=== PATIENT | male | born 1970 | race Caucasian/White ===

== ENCOUNTER → 2017-11-14 08:33 | Outpatient (CLI) | payer OTHER, BC, SELFPAY ==
[2017-11-14 09:03] LABS: Bacteria 0 SEEN /hpf (None Seen); Red Blood Cells-Urine 0 SEEN /hpf (0-5); Squamous Epithelial Cells - UA 0 SEEN /hpf (0-5)
[2017-11-14 09:55] LABS: Absolute Neutrophil Count 3.5 X10^3/uL (2.0-7.7); Basophil# 0.03 X10^3/uL; Basophil% 0.4 % (0-1); Eosinophil# 0.39 X10^3/uL; Eosinophils% 5.7 % (0-5); Hemoglobin 16.8 g/dl (13.0-16.5); Lymphocyte % 29.5 % (19-41); Mean Corpuscular Hgb 31.4 pg (27.0-32.0); Mean Corpuscular Volume 89.7 fL (80-94); Mean Platelet Vol. 10.4 fl (6.2-12.0); Monocyte# 0.86 X10^3/uL; Monocyte% 12.7 % (0-10); Neutrophil # 3.47 X10^3/uL (2.7-7.7); Neutrophil % 51.1 % (47-70); Platelet Count 193 K/mm3 (150-450); RBC Distribution Width CV 12.7 % (11.6-14.6); RBC Distribution Width SD 41.7 fl (35.1-43.9); Red Blood Count 5.35 M/mm3 (4.6-6.2); White Blood Count 6.8 K/mm3 (4.4-11.0)
[2017-11-14 09:57] LABS: POSITIVE COUNT NO; POSITIVE DIFFERENTIAL NO; POSITIVE MORPHOLOGY NO
[2017-11-14 10:01] LABS: Color, Urine Yellow (Yellow); Glucose, Dipstick Normal (Normal); Ketone-Dipstick Negative (Negative); Leukocyte Esterase-Dipstick Negative /ul (Negative); Nitrite-Dipstick Negative (Negative); Occult Blood-Urine Negative /ul (Negative); Protein-Dipstick Negative (Negative); Specific Gravity, Urine 1.015 (1.002-1.030); Urine Bilirubin Dipstick Negative (Negative); Urine Clarity Clear (Clear); Urine Urobilinogen Normal (Normal)
[2017-11-14 10:08] LABS: Mucous, Urine 1+ /hpf (<or=2+); White Blood Cells 0-5 SEEN /hpf (0-5)
[2017-11-14 10:21] LABS: AST(SGOT) 27 U/L (15-37); Alanine Aminotransfer ALT/SGPT 34 U/L (16-61); Albumin, Serum 3.7 g/dL (3.2-5.0); Alkaline Phosphatase 85 U/L (45-117); Anion Gap 7 (5-15); BUN 19 mg/dL (7-18); BUN/Creat Ratio 21.8 RATIO (10-20); Calcium,Total 8.1 mg/dL (8.5-10.1); Chloride 103 mmol/L (98-107); Cholesterol 161 mg/dL (200); Creatinine, Serum 0.87 mg/dL (0.70-1.30); EST Glomerular Filtration Rate 99 mL/min (>60); Est Glom Filt Rate - Afr Amer 120 mL/min (>60); Globulin 3.8 g/dL (2.2-4.2); Glucose 83 mg/dL (74-106); High Density Lipoprotein 37 mg/dL; Potassium 4.2 mmol/L (3.5-5.1); Protein, Total 7.5 g/dL (6.4-8.2); Sodium Level 138 mmol/L (136-145); Triglycerides 127 mg/dL; Very Low Density Lipoprotein 25 mg/dL (5-40)
[2017-11-14 10:33] LABS: Microalbumin,Random Urine 19.3 mg/L (NO RANGE EST.); Microalbumin:Creatinine Ratio 7.8 mg/g CRE (<30 mg/g CRE)
== END ==
PROVIDERS: Family Provider Internal Medicine; PCP Internal Medicine; Visit Provider Internal Medicine
DX: I10 Essential (primary) hypertension (principal)
CPT/HCPCS: 36415; 80053; 80061; 81001; 82043; 82570; 85025

== ENCOUNTER → 2018-10-16 07:35 | Outpatient (CLI) | payer OTHER, BC, SELFPAY ==
[2018-10-16 08:26] LABS: Absolute Lymphocyte Count 2.23 X10^3/ul (0.83-4.51); Absolute Neutrophil Count 4.2 X10^3/uL (2.0-7.7); Basophil# 0.05 X10^3/uL; Basophil% 0.7 % (0-1); Eosinophil# 0.33 X10^3/uL; Eosinophils% 4.3 % (0-5); Hematocrit 49.1 % (40-54); Hemoglobin 16.9 g/dl (13.0-16.5); Lymphocyte # 2.23 X10^3/ul (4.0); Mean Corp Hgb Conc 34.4 g/gl (32-36); Mean Corpuscular Hgb 31.1 pg (27.0-32.0); Mean Corpuscular Volume 90.3 fL (80-94); Mean Platelet Vol. 9.6 fl (6.2-12.0); Monocyte# 0.81 X10^3/uL; Monocyte% 10.5 % (0-10); Neutrophil # 4.19 X10^3/uL (2.7-7.7); Neutrophil % 54.6 % (47-70); Platelet Count 233 K/mm3 (150-450); RBC Distribution Width CV 12.7 % (11.6-14.6); RBC Distribution Width SD 41.9 fl (35.1-43.9); Red Blood Count 5.44 M/mm3 (4.6-6.2); White Blood Count 7.7 K/mm3 (4.4-11.0)
[2018-10-16 08:32] LABS: POSITIVE COUNT NO; POSITIVE DIFFERENTIAL NO; POSITIVE MORPHOLOGY NO
[2018-10-16 08:51] LABS: Microalbumin,Random Urine 18.8 mg/L (NO RANGE EST.); Microalbumin:Creatinine Ratio 12.5 mg/g CRE (<30 mg/g CRE)
[2018-10-16 09:01] LABS: Color, Urine Yellow (Yellow); Glucose, Dipstick Normal (Normal); Ketone-Dipstick Negative (Negative); Leukocyte Esterase-Dipstick 25 /ul (Negative); Nitrite-Dipstick Negative (Negative); Occult Blood-Urine 10 /ul (Negative); Protein-Dipstick Negative (Negative); Urine Bilirubin Dipstick Negative (Negative); Urine Clarity Clear (Clear); Urine Urobilinogen Normal (Normal)
[2018-10-16 09:27] LABS: ALB/GLOB Ratio 0.8 RATIO (0.9-2.4); AST(SGOT) 22 U/L (15-37); Alanine Aminotransfer ALT/SGPT 32 U/L (16-61); Albumin, Serum 3.3 g/dL (3.2-5.0); Alkaline Phosphatase 103 U/L (45-117); Anion Gap 6 (5-15); BUN 15 mg/dL (7-18); BUN/Creat Ratio 15.4 RATIO (10-20); Calcium,Total 8.2 mg/dL (8.5-10.1); Chloride 105 mmol/L (98-107); Cholesterol 162 mg/dL (200); Creatinine, Serum 0.98 mg/dL (0.70-1.30); EST Glomerular Filtration Rate 87 mL/min (>60); Est Glom Filt Rate - Afr Amer 105 mL/min (>60); Globulin 4.3 g/dL (2.2-4.2); Glucose 96 mg/dL (74-106); High Density Lipoprotein 35 mg/dL; Potassium 3.8 mmol/L (3.5-5.1); Protein, Total 7.6 g/dL (6.4-8.2); Sodium Level 140 mmol/L (136-145); Triglycerides 122 mg/dL; Very Low Density Lipoprotein 24 mg/dL (5-40)
== END ==
PROVIDERS: Family Provider Internal Medicine; PCP Internal Medicine; Referring Provider Internal Medicine; Visit Provider Internal Medicine
DX: I10 Essential (primary) hypertension (principal)
CPT/HCPCS: 36415; 80053; 80061; 81002; 82043; 82570; 85025

== ENCOUNTER 2020-10-03 08:36 | Day surgery (SDC) | payer OTHER, SELFPAY ==
--- NOTE | 2020-10-03 08:56 | H&P.OPEN ---
History of Present Illness Date of Admission: 10/03/20 The patient is a 49 year old M presents for screening for colon cancer due to family history of colon cancer. Patient's brother did have colon cancer diagnosed at 62 along with kidney cancer. Colon cancer was able to be resected, and the kidney cancer did spread. Patient denies any chronic abdominal pain nausea vomiting or reflux. Patient has never had a previous colonoscopy. Patient has bowel movements daily denies any blood. Past Medical/Surgical History - Planned Operation Planned Operative Procedure/s: cscope open access Date of Operative Procedure: 10/03/20 Permit Signed: No S.O.S: No Is This Patient Having a Total Joint: No - Previous Hospitalizations/Surgeries HX Hospitalizations: No HX of Surgeries: n/a Any Problems With Anesthesia: No You/Your Family Experience Fever (Hyperthermia) With Anes: No Cholinesterase deficiency: No - Cardiovascular Hx Chest Pain within Last 2 months: No Hx of Irregular Heartbeat and/or Afib: No Hx Heart Attack: No Hx Congestive Heart Failure: No Hx Rheumatic Fever: No Hx Hypertension: Yes - controlled with meds Hx Internal Defibrillator: No Hx Pacemaker: No Hx Cardiac Catheterization: No Hx Cardiac Surgery/Stents/Etc.: No Hx Stress Test: No HX Edema: No Hx Pain in Legs when Walking/Leg Cramps: No - Respiratory Chronic Cough: No HX of Shortness of Breath: Yes - slightly sob with 2 flights of stairs Hoarseness: No Hx Chronic Obstructive Pulmonary Disease (COPD): No Hx Asthma: No Hx Emphysema: No Hx Sleep Apnea: Yes CPAP: Yes BIPAP: No Hx Oxygen Use at Home: No Hx Respiratory Tract Infection/Cold (presently): No Result (for STOP score): Positive Hx Smoking: No Smoking Status: Never smoker - Gastrointestinal Hx Gastroesophageal Reflux: No Hx Gastrointestinal Disorders: No Hx Gastrointestinal Bleed: No Hx Ulcer: No Hx Hiatal Hernia: No Difficulty Chewing/Swallowing: No Recent Onset of Swallowing Problems: No Special diet followed at home: No Hx Unplanned Weight Loss of 20#: No HX Unplanned Weight Gain of 20#: No - Neurological Hx Seizures: No HX Syncope/Blackout Spells/Unconsciousness: No Hx CVA/Stroke: No Hx Transient Ischemic Attacks (TIA): No Hx Multiple Sclerosis: No Hx Parkinson's Disease: No Hx Head/Neck Injury: Yes - concussion as teenager Hx Headaches: Yes - migraines Hx Back Injury/Pain: No Recent Onset of Speech Difficulty: No Restless Legs: Yes Does patient have nerve stimulator: No Patient instructed to have device shut off: No Rep notified?: No - Blood Disorder Hx Leukemia: No Bleeding Tendencies: No Hx Deep Vein Thrombosis: No Hx High Cholesterol: No Blood Transmitted Disease: No Hx Hepatitis: No Hx Cirrhosis: No Hx Anemia: No Hx Blood Disorders: No - Genitourinary Hx Renal Disease: No - Musculoskeletal Hx Arthritis: No Hx Rheumatoid Arthritis: No Hx Gout: No Recent Onset of an Orthopedic Problem: No - Endocrine Hx Diabetes: No Thyroid Disease: No Hx Steroid Therapy: No - Psycho/Social Hx Substance Use: No Hx Alcohol Use: No Hx Anxiety: No Hx Depression: No Mental Illness: No Hx Dementia: No - Miscellaneous Hx Cancer: No Recent Exposure to Contagious Disease: No Active MRSA: No Hx of C-Diff: No Any Loose Teeth: No Allergies No Known Allergies Allergy (Verified 10/03/20 08:56) - Discharge Is Pt Admitted From a Snf, or a [facility]: No After D/C, Where Do you Plan to Go: Return Home - Physical Exam General: Alert, Oriented x3, Cooperative, No apparent distress HEENT: Atraumatic Lungs: Normal air movement Cardiovascular: Regular rate Abdomen: Soft, Non Tender, Non-Distended Extremities: No clubbing, No cyanosis, No edema Neurological: Cranial nerves II-XII grossly intact Psych/Mental Status: Normal Affect Microbiology Past 72 Hours 10/02/20 08:45 Interface Orders SARS-CoV-2 Antigen (Rapid) - Final Assessment/Plan 49-year-old male with family history of colon cancer Procedure Criteria Procedure Type: Elective COVID Risk Discussion: The surgeon/proceduralist and patient have discussed in detail the risk of exposure to and/or potential harm posed by the COVID-19 virus with having a surgery/procedure at this time versus the risk of delaying the surgery/procedure. It is not possible to know either the risk of delaying the surgery or procedure or chance of getting an infection with perfect accuracy, but a joint decision was made between the patient and the surgeon/proceduralist to proceed at this time with the scheduled surgery/procedure as indicated on the consent form. Surgery Risks - Colonoscopy I discussed with the patient the risks of the procedure: Yes Risks Include but are not Limited To: Risks include but are not limited to: Bleeding, perforation requiring further surgery, inability to complete colonoscopy requiring barium enema.
[2020-10-03 08:59] VITALS: BP 154/103; PULSE 96; RESP 20; TEMP 36.6; O2SAT 98; BMI 46.4
[2020-10-03] MEDS: Lactated Ringers 1,000 ML 100 ML IV (09:08)
--- NOTE | 2020-10-03 09:45 | COLBX_PTH ---
PATIENT: JEFFERY KEN LOC: EN U#:[id number] AGE/SX: 49/M ROOM: RE10/03/[address]: Dr. Lelia Arguello MD : 1970 BED: DIS: 10/03/2020 SPEC #: [id number] RECD: 10/03/20 11:19 STATUS: SONYA FILI #: [id number] MAGALY: 10/03/20 09:[address]: Lelia Arguello DEPT: SURGICAL PATHOLOGY RECD BY: Elly Fritz ENTERED: 10/03/20 12:01 SP TYPE: COLON BX OTHR DR: Dr. Mely Flanagan DO Tissues: Transverse colon Procedures: Surgery Specimen Level IV HEADER OPERATION: Colonoscopy - open access (MAC) PRE-OP DIAGNOSIS: Screening TISSUE SUBMITTED: Biopsy of transverse colon polyp MICROSCOPIC DIAGNOSIS Transverse colon polyp, biopsy: Tubular adenoma. AM:milan 10/04/2020 MICROSCOPIC DESCRIPTION Slides are reviewed. GROSS DESCRIPTION Received in fixative is one container labeled with the patient's name and designated biopsy of transverse polyp. The specimen consists of two irregular fragments of light recinos soft tissue that in aggregate measure 0.5 x 0.5 x 0.1 cm. The specimen is totally submitted in one cassette. / AM:milan 10/03/20 TC:5 CPT: 76647
[2020-10-03 10:16] VITALS: BP 132/98; BP 154/103; PULSE 103; RESP 18; TEMP 36.3; O2SAT 96
--- NOTE | 2020-10-03 10:19 | OP.COLON_ITS ---
Patient Name: Yash Diallo Procedure Date: 10/03/2020 9:34 AM Date of : 1970 Age: 49 Procedure: Colonoscopy Indications: Screening in patient at increased risk: Family history of 1st-degree relative with colorectal cancer Providers: Lelia Arguello MD Medicines: Monitored Anesthesia Care Patient Profile: This is a 49 year old male. Last Colonoscopy: none. The patient's first colonoscopy is today. Complications: No immediate complications. Procedure: Pre-Anesthesia Assessment: - Prior to the procedure, a History and Physical was performed, and patient medications and allergies were reviewed. The patient's tolerance of previous anesthesia was also reviewed. The risks and benefits of the procedure and the sedation options and risks were discussed with the patient. All questions were answered, and informed consent was obtained. Prior Anticoagulants: The patient has taken no previous anticoagulant or antiplatelet agents. ASA Grade Assessment: Per anesthesia. After reviewing the risks and benefits, the patient was deemed in satisfactory condition to undergo the procedure. After I obtained informed consent, the scope was passed under direct vision. Throughout the procedure, the patient's blood pressure, pulse, and oxygen saturations were monitored continuously. The Colonoscope was introduced through the anus and advanced to the cecum, identified by the appendiceal orifice, ileocecal valve and palpation. The colonoscopy was performed without difficulty. The patient tolerated the procedure well. The quality of the bowel preparation was good. Scope In: 9:46:26 AM Scope Withdrawal Time 0 hours 19 minutes 30 seconds Scope Out: 10:11:07 AM Total Procedure Duration Time 0 hours 24 minutes 41 seconds Findings: The perianal and digital rectal examinations were normal. A less than 5 mm polyp was found in the transverse colon. The polyp was sessile. The polyp was removed with a cold biopsy forceps. Resection and retrieval were complete. A few small and large-mouthed diverticula were found in the sigmoid colon and descending colon. The exam was otherwise without abnormality on direct and retroflexion views. Impression: - One less than 5 mm polyp in the transverse colon, removed with a cold biopsy forceps. Resected and retrieved. - Diverticulosis in the sigmoid colon and in the descending colon. - The examination was otherwise normal on direct and retroflexion views. Recommendation: - Discharge patient to home. - High fiber diet. - Continue present medications. - Await pathology results. - Repeat colonoscopy in 3 years for surveillance based on pathology results. Procedure Code(s): --- Professional --- 28224, Colonoscopy, flexible; with biopsy, single or multiple Diagnosis Code(s): --- Professional --- Z80.0, Family history of malignant neoplasm of digestive organs D12.3, Benign neoplasm of transverse colon (hepatic flexure or splenic flexure) K57.30, Diverticulosis of large intestine without perforation or abscess without bleeding CPT copyright 2017 [employer]. All rights reserved. 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 MD Lelia De La Fuente MD 10/03/2020 10:19:12 AM This report has been signed electronically. Number of Addenda: 0 Note Initiated On: 10/03/2020 9:34 AM
[2020-10-03 10:20] VITALS: BP 131/92; BP 154/103; PULSE 102; RESP 18; O2SAT 96
--- NOTE | 2020-10-03 10:20 | OP.CCLET_ITS ---
10/03/2020 Mely Flanagan [address] [place] [address] Re : Colonoscopy procedure for [facility] Dear Dr. Flanagan This procedure was performed on Saturday, October 03, 2020. My impressions and recommendations are as follows: Impressions : - One less than 5 mm polyp in the transverse colon, removed with a cold biopsy forceps. Resected and retrieved. - Diverticulosis in the sigmoid colon and in the descending colon. - The examination was otherwise normal on direct and retroflexion views. Recommendations : - Discharge patient to home. - High fiber diet. - Continue present medications. - Await pathology results. - Repeat colonoscopy in 3 years for surveillance based on pathology results. My findings are described in the full procedure note, which is enclosed. If I can be of further assistance, please feel free to contact me at Doctor phone number(s): , Work: . Sincerely, MD Lelia De La Fuente MD 10/03/2020 10:19:12 AM This report has been signed electronically.
[2020-10-03 10:25] VITALS: BP 131/105; BP 154/103; PULSE 96; RESP 18; O2SAT 95
[2020-10-03 10:30] VITALS: BP 143/101; BP 154/103; PULSE 94; RESP 18; TEMP 36.2; O2SAT 94
[2020-10-03 11:12] VITALS: BP 154/103
== END 2020-10-03 11:43 | disposition home or self-care (01) ==
LOC: EN 08:36 → AC 08:37
PROVIDERS: PCP Internal Medicine; Referring Provider Internal Medicine; Visit Provider Surgery
PROC: 0DJD8ZZ Inspection of Lower Intestinal Tract, Via Natural or Artificial Opening Endoscopic (ICD-10-PCS; CPT 45378; principal; 2020-10-03 09:40)
DX: Z12.11 Encounter for screening for malignant neoplasm of colon (principal); D12.3 Benign neoplasm of transverse colon; K57.30 Diverticulosis of large intestine without perforation or abscess without bleeding; Z80.0 Family history of malignant neoplasm of digestive organs; Z20.828 Contact with and (suspected) exposure to other viral communicable diseases; I10 Essential (primary) hypertension; G47.30 Sleep apnea, unspecified; G25.81 Restless legs syndrome; G43.909 Migraine, unspecified, not intractable, without status migrainosus; Z79.899 Other long term (current) drug therapy
CPT/HCPCS: 45380; 87426; 88305; C9803; J7120; J2405

== ENCOUNTER 2020-11-22 09:30 | Outpatient (RCR) | payer OTHER, SELFPAY ==
[2020-11-22] MEDS: COVID-19 VACC, MRNA(PFIZER)/PF 30 MCG/0.3 ML SYRINGE IM (07:14)
[2020-12-13] MEDS: COVID-19 VACC, MRNA(PFIZER)/PF 30 MCG/0.3 ML SYRINGE IM (07:01)
== END 2020-11-22 23:59 ==
LOC: IMMUN 09:30
PROVIDERS: PCP Internal Medicine; Visit Provider Family Medicine
DX: Z23 Encounter for immunization (principal)
CPT/HCPCS: 0001A; 0002A; 91300

== ENCOUNTER 2022-10-10 06:56 | Emergency (ER) | payer OTHER, SELFPAY ==
[2022-10-10 06:56] VITALS: PULSE 83; RESP 18; TEMP 36.8; O2SAT 97; BMI 50.6
--- NOTE | 2022-10-10 07:07 | CT_ITS ---
STUDY: CT ABDOMEN AND PELVIS WITHOUT CONTRAST REASON FOR EXAM: Male, 51 years old. Left flank pain. TECHNIQUE: Transaxial images were obtained from the dome of the diaphragm to the symphysis pubis without oral contrast, and without intravenous contrast. Sagittal and coronal images were reconstructed. Individualized dose optimization techniques were used for this CT. COMPARISON: None. FINDINGS: Partially visualized lower chest: Lung bases unremarkable. Liver: No concerning lesions. Scattered benign-appearing cystic lesions. Gallbladder and biliary tree: No visible gallstones. No pericholecystic inflammation. No biliary ductal dilation. Pancreas: No pancreatic lesions or inflammation. Spleen: Normal size, no splenic lesions. Adrenal glands: No concerning masses. Kidneys and ureters: 3 mm proximal left ureteral stone with mild more proximal hydronephrosis and hydroureter. More distal left ureter unremarkable. No residual left-sided stones. Right kidney and right ureter unremarkable. Bowel: Normal appendix. No obstruction or inflammation of the bowel. Scattered left colonic diverticula, no diverticulitis. Urinary bladder: No stones or wall thickening. Reproductive:Normal size prostate. Vascular: No abdominal aortic aneurysm. Retroperitoneal and peritoneal spaces: No ascites or free air. No retroperitoneal lesions. Osseous: No acute osseous abnormality. Prominent facet degeneration lower lumbar spine. Abdominal and pelvic wall: No concerning findings. Any findings described in the findings sections and not included in the impression are incidental and do not require imaging follow-up. CT/Abdomen/Pelvis without Cont IMPRESSION: 3 mm proximal left ureteral stone with mild more proximal hydronephrosis and hydroureter. Electronically Signed: Jg Long MD at 7:41 EST Reading Location ID and State: [facility] [place] Tel , Service support ,
[2022-10-10 07:12] VITALS: BP 119/68
[2022-10-10] MEDS: 0.9% Normal Saline 1,000 ML 250 ML IV (07:15)
[2022-10-10] MEDS: Morphine 4 MG/ML Syringe IV ×2 (07:16→09:22)
[2022-10-10] MEDS: Ondansetron 4 MG/2 ML Vial IV (07:16)
--- NOTE | 2022-10-10 07:18 | EX.ED.DYSGE1 ---
HPI History of Present Illness Chief Complaint: Flank Pain Informant: patient Narrative Narrative: Sudden left leg pain starting at 4 AM. He is already awake. Unable to get comfortable. No nausea or vomiting. Urinating without any difficulties. No fevers. No history of kidney stones. History of hypertension took his morning medications. Took an Aleve prior to arrival. Denies any allergies. Denies history of stomach ulcers or kidney injury. Prior similar symptoms: No [facility] Medical History (Updated 10/10/22 @ 09:[address] Jorge Sanchez DO) Hypertension Home Medications amitriptyline 50 mg tablet 50 mg PO QHS 09/26/20 [History Last Taken Unknown] metoprolol tartrate 25 mg tablet 25 mg PO DAILY 09/26/20 [History Last Taken 10/03/20] rizatriptan 10 mg tablet 10 mg PO PRN PRN migraines 09/26/20 [History Last Taken Unknown] cefuroxime axetil 500 mg tablet 500 mg PO BID #14 tabs 10/10/22 [Rx Last Taken Unknown] ibuprofen 600 mg tablet 600 mg PO Q6H PRN PRN pain #20 TABLETS 10/10/22 [Rx Last Taken Unknown] ondansetron 4 mg disintegrating tablet 4 mg PO Q8H PRN PRN Nausea #10 tabs 10/10/22 [Rx Last Taken Unknown] oxycodone-acetaminophen 5 mg-325 mg tablet 1 tab PO Q6H PRN PRN Pain 3 days #12 TABLETS 10/10/22 [Rx Last Taken Unknown] tamsulosin 0.4 mg capsule 0.4 mg PO DAILY #7 CAPSULES 10/10/22 [Rx Last Taken Unknown] Allergy/AdvReac Type Severity Reaction Status Date / Time No Known Allergies Allergy Verified 10/10/22 06:58 Social History Smoking Status: Never smoker ROS ROS ED Constitutional Constitutional ED: Denies chills, fever(s) or sweats Eyes Eyes: Denies change in vision ENT ENT ED: Denies dysphagia or sore throat Cardiovascular Cardiovascular: Denies chest pain, leg edema, palpitations or racing heartbeat Respiratory/Chest Respiratory/Chest: Denies cough, dyspnea or dyspnea on exertion Gastrointestinal Gastrointestinal: Denies abdominal pain, diarrhea, nausea or vomiting Genitourinary Genitourinary ED: Denies dysuria, hematuria or urinary frequency Musculoskeletal Musculoskeletal: Reports back pain; Denies extremity pain or neck pain Integumentary Denies rash or wounds Neurologic Neurologic: Denies headache(s), paresthesias or weakness EXAM Physical Exam Const Vital Signs: 10/10/22 06:56 10/10/22 07:12 10/10/22 09:22 Temperature 98.2 F Temperature Source Temporal Pulse Rate 83 72 Respiratory Rate 18 16 Blood Pressure 119/68 119/59 L Blood Pressure Mean 85 79 Pulse Ox 97 98 Oxygen Delivery Method Room Air Room Air 10/10/22 10:16 Temperature Temperature Source Pulse Rate 71 Respiratory Rate 16 Blood Pressure 105/61 Blood Pressure Mean Pulse Ox 95 Oxygen Delivery Method Positive well nourished and well developed Constitutional Narrative: Uncomfortable walk around the room unable to stand still, Nontoxic General Appearance ED: well developed HEENT Reports moist mucous membranes normocephalic and atraumatic Eyes PERRL, EOMs intact bilaterally and conjunctivae normal General Eye ED: Yes normal appearance of both eyes Neck no lymphadenopathy and supple General: Negative for tenderness Chest Wall Chest: Negative for tenderness Resp normal respiratory effort and normal air movement Effort and Inspection: symmetric chest movement; Negative for respiratory distress Cardio regular rate, regular rhythm and no murmurs Peripheral Pulses: pulses 2+ throughout GI normal to inspection, nondistended, normoactive bowel sounds and non-tender Palpation: Negative for guarding or rebound tenderness present Back/Spine no CVA tenderness and no thoracic nor lumbar tenderness Back/Spine Narrative: No rash. Extremity normal to inspection General Extremety ED: Negative for edema or tenderness General Extremity: Negative for edema Neuro oriented x3 and no sensory deficits noted Sensorium / Orientation: awake and alert Skin no rashes or lesions noted and no wounds MDM MDM MDM Narrative Medical decision making narrative: Patient vital stable nontoxic uncomfortable. Differential kidney stone, no rash for concerns of shingles, musculoskeletal, pyelonephritis however no urine symptoms. Renal stone protocol initiated treated morphine Zofran fluids. Labs and CT scan ordered. 0810: CT scan reviewed interpreted by myself and read by radiology 3 mm proximal left ureteral stone with hydronephrosis. Urine in the lab. Labs creatinine 1.15 White count 7.3 hemoglobin 17.4. More comfortable however states pain is returning. Additional dose of morphine will be given in. Patient is feeling better on reevaluation. Flomax was given, urine noted signs of infection culture sent, due to the kidney stone will start antibiotics. Cefuroxime. Prescriptions to help with pain control and antibiotics. Urine strainer for home. Return precautions otherwise outpatient follow-up with urology. All questions were answered. Lab Data Attestation: I reviewed the patient's lab results. Labs: Laboratory Results - last 24 hr 10/10/22 10/10/22 10/10/22 07:03 07:03 07:55 WBC 7.3 RBC 5.74 Hgb 17.4 H Hct 51.1 MCV 89.0 MCH 30.3 MCHC 34.1 RDW Std Deviation 40.4 RDW Coeff of Kelly 12.5 Plt Count 221 MPV 10.1 Immature Gran % (Auto) 0.400 Neut % (Auto) 60.8 Lymph % (Auto) 24.7 [place] % (Auto) 9.2 Eos % (Auto) 4.1 Baso % (Auto) 0.8 Absolute Neuts (auto) 4.4 Absolute Lymphs (auto) 1.79 Nucleated RBC % 0 Sodium 139 Potassium 3.8 Chloride 102 Carbon Dioxide 29.0 Anion Gap 8 BUN 22 H Creatinine 1.15 Estim Creat Clear Calc 77.58 Est GFR (MDRD) Af Amer 86 Est GFR (MDRD) Non-Af 71 BUN/Creatinine Ratio 19.1 Glucose 160 H Calcium 8.5 Urine Color [place] Urine Clarity Cloudy Urine pH 5.0 Ur Specific [place] 1.025 Urine Protein 100 H Urine Glucose (UA) Normal Urine Ketones 5 H Urine Occult Blood 250 H Urine Nitrite Negative Urine Bilirubin Negative Urine Urobilinogen 1 H Ur Leukocyte Esterase 100 H Urine RBC > 100 SEEN Urine WBC 5-10 SEEN Ur Squamous Epith Cells 0-5 SEEN Urine Bacteria 0 SEEN Urine Mucus 0 SEEN Radiography Diagnostic Testing: Clinical Impression(s) from Imaging Studies Abdomen/Pelvis CT 10/10/22 07:07 IMPRESSION: 3 mm proximal left ureteral stone with mild more proximal hydronephrosis and hydroureter. Electronically Signed: Jg Long MD at 7:41 EST Reading Location ID and State: [facility] [place] Tel , Service support , Discharge Plan Triage Chief Complaint: Flank Pain ED Provider: Jorge Sanchez Dx/Rx/DC Orders Clinical Impression: Renal colic on left side, Kidney stone on left side, Acute UTI Instructions: Urinary Tract Infections in Men, ED Hematuria, ED Kidney Stone w/ Colic Prescriptions: New cefuroxime axetil 500 mg tablet 500 mg PO BID Qty: 14 0RF ibuprofen 600 mg tablet 600 mg PO Q6H PRN PRN (Reason: pain) Qty: 20 0RF oxycodone-acetaminophen [oxycodone-acetaminophen] 5-325 mg tablet 1 tab PO Q6H PRN PRN (Reason: Pain) 3 Days Qty: 12 0RF ondansetron [ondansetron] 4 mg tablet,disintegrating 4 mg PO Q8H PRN PRN (Reason: Nausea) Qty: 10 0RF tamsulosin [tamsulosin] 0.4 mg capsule 0.4 mg PO DAILY Qty: 7 0RF No Action rizatriptan 10 MG tablet 10 mg PO PRN PRN (Reason: migraines) amitriptyline 50 MG tablet 50 mg PO QHS metoprolol tartrate 25 MG tablet 25 mg PO DAILY Primary Care Provider: Mely Flanagan Referrals: Jorge Mason MD [Med Staff - Active Staff] - 3-5 Days Mely Flanagan DO [Primary Care Provider] - 3-5 Days Activity Restrictions/Additional Instructions: 3 mm proximal ureteral stone on the left side. Mild infection in the urine. Take medicines and antibiotic as prescribed. Strain your urine. Follow-up with Dr. Mason. Return if worsening symptoms. Disposition Disposition: Home, Self Care Discharge Date/Time: 10/10/22 10:19
[2022-10-10 07:30] LABS: Absolute Lymphocyte Count 1.79 X10^3/uL (0.83-4.51); Absolute Neutrophil Count 4.4 X10^3/uL (2.0-7.7); Basophil# 0.06 X10^3/uL; Basophil% 0.8 % (0-1); Eosinophils% 4.1 % (0-5); Hematocrit 51.1 % (40-54); Hemoglobin 17.4 g/dL (13.0-16.5); Lymphocyte # 1.79 X10^3/ul (0.83-4.51); Lymphocyte % 24.7 % (19-41); Mean Corp Hgb Conc 34.1 g/dL (32-36); Mean Corpuscular Hgb 30.3 pg (27.0-32.0); Mean Platelet Vol. 10.1 fl (6.2-12.0); Monocyte# 0.67 X10^3/uL; Monocyte% 9.2 % (0-10); NRBC Flagged by Analyzer 0 % (0-5); Neutrophil # 4.41 X10^3/uL (2.7-7.7); Neutrophil % 60.8 % (47-70); Platelet Count 221 K/mm3 (150-450); RBC Distribution Width CV 12.5 % (11.6-14.6); RBC Distribution Width SD 40.4 fl (35.1-43.9); Red Blood Count 5.74 M/mm3 (4.6-6.2); White Blood Count 7.3 K/mm3 (4.4-11.0)
[2022-10-10 07:44] LABS: Anion Gap 8 (5-15); BUN 22 mg/dL (7-18); BUN/Creat Ratio 19.1 RATIO (10-20); Calcium,Total 8.5 mg/dL (8.5-10.1); Chloride 102 mmol/L (98-107); Creatinine, Serum 1.15 mg/dL (0.70-1.30); EST Glomerular Filtration Rate 71 mL/min (>60); Est Glom Filt Rate - Afr Amer 86 mL/min (>60); Estimated Creatinine Clearance 77.58 ml/min; Glucose 160 mg/dL (74-106); Potassium 3.8 mmol/L (3.5-5.1); Sodium Level 139 mmol/L (136-145)
[2022-10-10 07:59] LABS: Bacteria 0 SEEN /hpf (None Seen); Mucous, Urine 0 SEEN /hpf (<or=2+)
[2022-10-10 08:15] LABS: Color, Urine Amber (Yellow); Glucose, Dipstick Normal (Normal); Ketone-Dipstick 5 mg/dl (Negative); Leukocyte Esterase-Dipstick 100 /ul (Negative); Nitrite-Dipstick Negative (Negative); Occult Blood-Urine 250 /ul (Negative); Protein-Dipstick 100 mg/dl (Negative); Specific Gravity, Urine 1.025 (1.002-1.030); Urine Bilirubin Dipstick Negative (Negative); Urine Clarity Cloudy (Clear); Urine Urobilinogen 1 mg/dl (Normal)
[2022-10-10 08:21] LABS: Red Blood Cells-Urine > 100 SEEN /hpf (0-5); Squamous Epithelial Cells - UA 0-5 SEEN /hpf (0-5)
[2022-10-10 08:22] LABS: White Blood Cells 5-10 SEEN /hpf (0-5)
[2022-10-10 09:22] VITALS: BP 119/59; PULSE 72; RESP 16; O2SAT 98
[2022-10-10] MEDS: Tamsulosin HCl 0.4 MG Capsule PO (09:22)
[2022-10-10 10:16] VITALS: BP 105/61; PULSE 71; RESP 16; O2SAT 95
== END 2022-10-10 10:19 | disposition home or self-care (01) ==
PROVIDERS: Emergency Provider Emergency Medicine; PCP Internal Medicine; Visit Provider Emergency Medicine
DX: N23 Unspecified renal colic (principal); N39.0 Urinary tract infection, site not specified
CPT/HCPCS: 74176; 80048; 81001; 85025; 87086; 96361; 96374; 96375; 96376; 99284; J7030; A4216; J2405

== ENCOUNTER 2022-10-23 21:20 | Emergency (ER) | payer OTHER, SELFPAY ==
[2022-10-23 21:20] VITALS: BP 156/92; PULSE 95; RESP 16; TEMP 36.2; O2SAT 95; BMI 45.9
[2022-10-23 21:42] LABS: Absolute Lymphocyte Count 2.33 X10^3/uL (0.83-4.51); Absolute Neutrophil Count 9.6 X10^3/uL (2.0-7.7); Basophil# 0.06 X10^3/uL; Basophil% 0.4 % (0-1); Eosinophil# 0.35 X10^3/uL; Eosinophils% 2.5 % (0-5); Hematocrit 49.8 % (40-54); Hemoglobin 17.1 g/dL (13.0-16.5); Lymphocyte # 2.33 X10^3/ul (0.83-4.51); Lymphocyte % 16.5 % (19-41); Mean Corp Hgb Conc 34.3 g/dL (32-36); Mean Corpuscular Hgb 30.4 pg (27.0-32.0); Mean Corpuscular Volume 88.6 fL (80-94); Mean Platelet Vol. 9.7 fl (6.2-12.0); NRBC Flagged by Analyzer 0 % (0-5); Neutrophil # 9.63 X10^3/uL (2.7-7.7); POSITIVE DIFFERENTIAL YES; Platelet Count 230 K/mm3 (150-450); RBC Distribution Width CV 12.3 % (11.6-14.6); Red Blood Count 5.62 M/mm3 (4.6-6.2); White Blood Count 14.2 K/mm3 (4.4-11.0)
[2022-10-23 21:46] LABS: Differential Indicated SCAN CRITERIA MET
[2022-10-23 21:56] LABS: Anion Gap 8 (5-15); BUN 23 mg/dL (7-18); BUN/Creat Ratio 14.4 RATIO (10-20); Calcium,Total 8.8 mg/dL (8.5-10.1); Chloride 101 mmol/L (98-107); EST Glomerular Filtration Rate 48 mL/min (>60); Est Glom Filt Rate - Afr Amer 59 mL/min (>60); Estimated Creatinine Clearance 55.76 ml/min; Glucose 139 mg/dL (74-106); Potassium 3.2 mmol/L (3.5-5.1); Sodium Level 138 mmol/L (136-145)
[2022-10-23 22:34] LABS: Differential Comment SCANNED
[2022-10-23 22:49] LABS: Squamous Epithelial Cells - UA 0 SEEN /hpf (0-5)
[2022-10-23 23:02] LABS: Color, Urine Yellow (Yellow); Glucose, Dipstick Normal (Normal); Ketone-Dipstick 5 mg/dl (Negative); Leukocyte Esterase-Dipstick 25 /ul (Negative); Nitrite-Dipstick Negative (Negative); Occult Blood-Urine 25 /ul (Negative); Protein-Dipstick 30 mg/dl (Negative); Specific Gravity, Urine 1.015 (1.002-1.030); Urine Bilirubin Dipstick Negative (Negative); Urine Clarity Clear (Clear); Urine Urobilinogen Normal (Normal)
[2022-10-23 23:11] LABS: Amorphous Sediment 1+; Bacteria 1+ /hpf (None Seen); Mucous, Urine 1+ /hpf (<or=2+); Red Blood Cells-Urine 0-5 SEEN /hpf (0-5); White Blood Cells 0-5 SEEN /hpf (0-5)
[2022-10-23] MEDS: Morphine 4 MG/ML Syringe IV (23:40)
[2022-10-23] MEDS: 0.9% Normal Saline 1,000 ML 999 ML IV (23:40)
[2022-10-23] MEDS: Ondansetron 4 MG/2 ML Vial IV (23:40)
--- NOTE | 2022-10-24 01:03 | EX.ED.DYSGE1 ---
HPI History of Present Illness Chief Complaint: Flank Pain Narrative Narrative: Patient is a 51-year-old male who is seen roughly 1 to 2 weeks ago secondary to left-sided flank pain and found to have a 3 mm kidney stone in the proximal left ureter. Patient states that his pain complete resolved and he thought he passed stone. He states that today while at work he noticed some left-sided pain without any type of trauma or excessive activity. He states this evening the pain greatly increased and feels similar nature to his previous kidney stone and secondary to his he presents for repeat evaluation. [facility] Medical History (Updated 10/24/22 @ 05:[address] Serafin Dean, DO) Hypertension Kidney stones Home Medications amitriptyline 50 mg tablet 50 mg PO QHS 09/26/20 [History Last Taken Unknown] metoprolol tartrate 25 mg tablet 25 mg PO DAILY 09/26/20 [History Last Taken 10/03/20] rizatriptan 10 mg tablet 10 mg PO PRN PRN migraines 09/26/20 [History Last Taken Unknown] cefuroxime axetil 500 mg tablet 500 mg PO BID #14 tabs 10/10/22 [Rx Last Taken Unknown] ibuprofen 600 mg tablet 600 mg PO Q6H PRN PRN pain #20 TABLETS 10/10/22 [Rx Last Taken Unknown] ondansetron 4 mg disintegrating tablet 4 mg PO Q8H PRN PRN Nausea #10 tabs 10/10/22 [Rx Last Taken Unknown] oxycodone-acetaminophen 5 mg-325 mg tablet 1 tab PO Q6H PRN PRN Pain 3 days #12 TABLETS 10/10/22 [Rx Last Taken Unknown] tamsulosin 0.4 mg capsule 0.4 mg PO DAILY #7 CAPSULES 10/10/22 [Rx Last Taken Unknown] cephalexin 500 mg capsule 500 mg PO TID 5 days #15 caps 10/24/22 [Rx Last Taken Unknown] ketorolac 10 mg tablet 10 mg PO 4X/DAY PRN PRN pain 5 days #20 tabs 10/24/22 [Rx Last Taken Unknown] oxycodone-acetaminophen 5 mg-325 mg tablet (Percocet) 1 tab PO Q6H PRN pain 3 days #12 tabs 10/24/22 [Rx Last Taken Unknown] Allergy/AdvReac Type Severity Reaction Status Date / Time No Known Allergies Allergy Verified 10/10/22 06:58 Social History Smoking Status: Never smoker ROS ROS ED Constitutional Constitutional ED: Denies chills or fever(s) ENT ENT ED: Denies sore throat Cardiovascular Cardiovascular: Denies chest pain Respiratory/Chest Respiratory/Chest: Denies cough or dyspnea Gastrointestinal Gastrointestinal: Reports abdominal pain and nausea; Denies diarrhea or vomiting Genitourinary Genitourinary ED: Denies dysuria or hematuria Musculoskeletal Musculoskeletal: Reports back pain Integumentary Denies rash Neurologic Neurologic: Denies headache(s) Hematologic/Lymphatic Hematologic/Lymphatic: Denies easy bleeding or easy bruising EXAM Physical Exam Const Vital Signs: 10/23/22 21:20 10/24/22 01:27 Temperature 97.2 F L Temperature Source Temporal Pulse Rate 95 87 Respiratory Rate 16 16 Blood Pressure 156/92 H 136/74 H Blood Pressure Mean 113 Pulse Ox 95 97 Oxygen Delivery Method Room Air Positive well nourished and well developed General Appearance ED: well developed HEENT Reports moist mucous membranes Eyes PERRL and EOMs intact bilaterally Neck supple Resp normal respiratory effort and clear to auscultation bilaterally Cardio regular rate and regular rhythm Rate: other Other Details: Radial pulses are plus 2 out of 4 bilaterally are equal and symmetric GI non-tender, non-distended and no masses GI Narrative: Patient has mild pain on palpation along the left lateral abdomen diffusely without voluntary guarding or rigidity. No pulsatile mass or fluid wave Auscultation: normoactive bowel sounds Palpation: soft Back/Spine Back/Spine Narrative: Positive left CVA tenderness Extremity normal to inspection Neuro oriented x3 and CN's II-XII intact bilaterally Sensorium / Orientation: alert Psych mental status grossly normal Skin no rashes or lesions noted Skin Narrative: No overlying soft tissue changes to suggest trauma or infection MDM MDM MDM Narrative Medical decision making narrative: Patient presented to the ER slightly hypertensive but has a past medical history of this. Otherwise he is afebrile with stable vital. His symptoms and history is most consistent with kidney stone. Basic blood work was obtained which shows leukocytosis without obvious signs of infection as urine shows +1 bacteria but no white blood cells. His recent CAT scan was reviewed and did show a 3 mm stone in the left proximal ureter. There is no reported stones within the kidney at that time. Therefore patient could have produced another kidney stone or more likely the one from a few weeks ago is now beginning to move once again. We discussed possible repeat CAT scan but patient states that as he has had one recently he would prefer to forego imaging studies at this time. Patient blood work was obtained to check for signs of urosepsis or SENDY which patient does not have. He was treated with morphine and Toradol and had resolution of pain. Therefore at this time he can be given symptomatic care and follow-up with urology on an outpatient basis. Lab Data Attestation: I reviewed the patient's lab results. Labs: Laboratory Results - last 24 hr 10/23/22 10/23/22 10/23/22 21:35 21:35 22:24 WBC 14.2 H RBC 5.62 Hgb 17.1 H Hct 49.8 MCV 88.6 MCH 30.4 MCHC 34.3 RDW Std Deviation 40.0 RDW Coeff of Kelly 12.3 Plt Count 230 MPV 9.7 Immature Gran % (Auto) 0.600 Neut % (Auto) 68.0 Lymph % (Auto) 16.5 L [place] % (Auto) 12.0 H Eos % (Auto) 2.5 Baso % (Auto) 0.4 Absolute Neuts (auto) 9.6 H Absolute Lymphs (auto) 2.33 Nucleated RBC % 0 Differential Comment SCANNED Diff Path Review May foll Sodium 138 Potassium 3.2 L Chloride 101 Carbon Dioxide 29.0 Anion Gap 8 BUN 23 H Creatinine 1.60 H Estim Creat Clear Calc 55.76 Est GFR (MDRD) Af Amer 59 L Est GFR (MDRD) Non-Af 48 L BUN/Creatinine Ratio 14.4 Glucose 139 H Calcium 8.8 Urine Color Yellow Urine Clarity Clear Urine pH 7.0 Ur Specific Winter 1.015 Urine Protein 30 H Urine Glucose (UA) Normal Urine Ketones 5 H Urine Occult Blood 25 H Urine Nitrite Negative Urine Bilirubin Negative Urine Urobilinogen Normal Ur Leukocyte Esterase 25 H Urine RBC 0-5 SEEN Urine WBC 0-5 SEEN Ur Squamous Epith Cells 0 SEEN Amorphous Sediment 1+ Urine Bacteria 1+ Urine Mucus 1+ Discharge Plan Triage Chief Complaint: Flank Pain ED Provider: Serafin Dean Dx/Rx/DC Orders Clinical Impression: Kidney stone on left side, Renal colic, Hypertension Instructions: ED Kidney Stone w/ Colic Prescriptions: New oxycodone-acetaminophen [Percocet] 5-325 mg tablet 1 tab PO Q6H PRN (Reason: pain) 3 Days Qty: 12 0RF ketorolac 10 mg tablet 10 mg PO 4X/DAY PRN PRN (Reason: pain) 5 Days Qty: 20 0RF cephalexin 500 mg capsule 500 mg PO TID 5 Days Qty: 15 0RF No Action rizatriptan 10 MG tablet 10 mg PO PRN PRN (Reason: migraines) amitriptyline 50 MG tablet 50 mg PO QHS metoprolol tartrate 25 MG tablet 25 mg PO DAILY cefuroxime axetil 500 mg tablet 500 mg PO BID Qty: 14 0RF ibuprofen 600 mg tablet 600 mg PO Q6H PRN PRN (Reason: pain) Qty: 20 0RF oxycodone-acetaminophen [oxycodone-acetaminophen] 5-325 mg tablet 1 tab PO Q6H PRN PRN (Reason: Pain) 3 Days Qty: 12 0RF ondansetron [ondansetron] 4 mg tablet,disintegrating 4 mg PO Q8H PRN PRN (Reason: Nausea) Qty: 10 0RF tamsulosin [tamsulosin] 0.4 mg capsule 0.4 mg PO DAILY Qty: 7 0RF Primary Care Provider: Mely Flanagan Referrals: Jorge Mason MD [Med Staff - Active Staff] - Mely Flanagan DO [Primary Care Provider] - Activity Restrictions/Additional Instructions: Please return to the ER if you have any further concerns or your pain is not controlled outpatient therapy or you develop a fever over 100.4 Disposition Disposition: Home, Self Care Discharge Date/Time: 10/24/22 01:27
[2022-10-24] MEDS: Cephalexin 250 MG Capsule 500 MG PO (01:23)
[2022-10-24] MEDS: Ketorolac 30 MG/ML Syringe IV (01:23)
[2022-10-24 01:27] VITALS: BP 136/74; PULSE 87; RESP 16; O2SAT 97
[2022-10-24 12:43] LABS: Pathologist Review Reviewed
== END 2022-10-24 01:27 | disposition home or self-care (01) ==
PROVIDERS: Emergency Medicine; Emergency Provider Emergency Medicine; PCP Internal Medicine; Visit Provider Emergency Medicine
DX: N20.1 Calculus of ureter (principal); I10 Essential (primary) hypertension; Z79.899 Other long term (current) drug therapy
CPT/HCPCS: 80048; 81001; 85025; 87086; 96361; 96374; 96375; 99284; J7030; J2405

== ENCOUNTER 2022-10-24 08:12 | Inpatient (IN) | payer OTHER, SELFPAY ==
[2022-10-24] VITALS (8 sets, daily range): BP systolic 139–169; BP diastolic 79–103; PULSE 87–107; RESP 18–20; TEMP 36.1–36.8; O2SAT 92–97; BMI 45.9; BMI 49.4
[2022-10-24] MEDS: 0.9% Normal Saline 1,000 ML 250 ML IV ×2 (08:29→15:00)
[2022-10-24] MEDS: Ondansetron 4 MG/2 ML Vial IV ×2 (08:29→16:32)
[2022-10-24] MEDS: morphine 8 MG/ML Syringe IV (08:30)
[2022-10-24 08:39] LABS: Absolute Lymphocyte Count 1.22 X10^3/uL (0.83-4.51); Absolute Neutrophil Count 12.1 X10^3/uL (2.0-7.7); Basophil# 0.04 X10^3/uL; Basophil% 0.3 % (0-1); Eosinophil# 0.04 X10^3/uL; Eosinophils% 0.3 % (0-5); Hematocrit 49.1 % (40-54); Hemoglobin 17.1 g/dL (13.0-16.5); Lymphocyte # 1.22 X10^3/ul (0.83-4.51); Lymphocyte % 8.3 % (19-41); Mean Corp Hgb Conc 34.8 g/dL (32-36); Mean Corpuscular Hgb 30.8 pg (27.0-32.0); Mean Corpuscular Volume 88.3 fL (80-94); Mean Platelet Vol. 9.4 fl (6.2-12.0); Monocyte# 1.31 X10^3/uL; Monocyte% 8.9 % (0-10); NRBC Flagged by Analyzer 0 % (0-5); Neutrophil # 12.08 X10^3/uL (2.7-7.7); Neutrophil % 81.7 % (47-70); Platelet Count 235 K/mm3 (150-450); RBC Distribution Width CV 12.4 % (11.6-14.6); RBC Distribution Width SD 40.8 fl (35.1-43.9); Red Blood Count 5.56 M/mm3 (4.6-6.2); White Blood Count 14.8 K/mm3 (4.4-11.0)
[2022-10-24 08:41] LABS: Bacteria 0 SEEN /hpf (None Seen)
[2022-10-24 08:46] LABS: Color, Urine Yellow (Yellow); Glucose, Dipstick 250 mg/dl (Normal); Ketone-Dipstick 5 mg/dl (Negative); Leukocyte Esterase-Dipstick 25 /ul (Negative); Nitrite-Dipstick Negative (Negative); Occult Blood-Urine 10 /ul (Negative); Protein-Dipstick 30 mg/dl (Negative); Specific Gravity, Urine 1.025 (1.002-1.030); Urine Bilirubin Dipstick Negative (Negative); Urine Clarity Clear (Clear); Urine Urobilinogen Normal (Normal)
[2022-10-24 08:53] LABS: Anion Gap 8 (5-15); BUN 25 mg/dL (7-18); BUN/Creat Ratio 13.3 RATIO (10-20); Calcium,Total 8.8 mg/dL (8.5-10.1); Chloride 101 mmol/L (98-107); Creatinine, Serum 1.88 mg/dL (0.70-1.30); EST Glomerular Filtration Rate 40 mL/min (>60); Est Glom Filt Rate - Afr Amer 49 mL/min (>60); Estimated Creatinine Clearance 47.46 ml/min; Glucose 162 mg/dL (74-106); Potassium 3.3 mmol/L (3.5-5.1); Sodium Level 137 mmol/L (136-145)
[2022-10-24 08:56] LABS: Mucous, Urine 2+ /hpf (<or=2+); Red Blood Cells-Urine 0-5 SEEN /hpf (0-5); Squamous Epithelial Cells - UA 0-5 SEEN /hpf (0-5); White Blood Cells 0-5 SEEN /hpf (0-5)
[2022-10-24] MEDS: HYDROmorphone 1 MG/ML Syringe IV ×3 (09:08→14:02)
--- NOTE | 2022-10-24 09:45 | EX.ED.DYSGE1 ---
HPI History of Present Illness Chief Complaint: Flank Pain Detail of Chief Complaint: Left flank pain Informant: patient and spouse/S.O. Onset/Context/Timing Onset: Yesterday Context: Sudden Onset Timing: Continuous and Waxes and wanes Quality: Left flank Location: Left flank Current Severity: Severe Maximum Severity: Severe Worsened by: Nothing Relieved by: Nothing Associated Symptoms Associated Symptoms: Nausea Narrative Narrative: Patient is a 51-year-old male who was seen October 10 and diagnosed with ureterolithiasis. He states he passed what looked like sand granules. He presented yesterday because of recurrent left flank pain. Since he was imaged on October 10 he was not imaged at that time. He does report chills. He denies fever. He does complain of discomfort with urination. He denies pain in his scrotum or testicles. There is no history of trauma. He denies headache, visual, ocular auditory symptoms. He denies cardiac or respiratory symptoms. The only GI symptom is nausea. The only urologic symptom is urgency and dysuria. Patient does have history of hypertension. He denies history of kidney disease. He also denies history of diabetes. He was treated with ketorolac yesterday and discharged with prescription for ketorolac Prior similar symptoms: Yes Recent Illness/Hospitalization: Yes [facility] Medical History Hypertension Kidney stones Home Medications amitriptyline 50 mg tablet 50 mg PO QHS 09/26/20 [History Last Taken Unknown] metoprolol tartrate 25 mg tablet 25 mg PO DAILY 09/26/20 [History Last Taken 10/03/20] rizatriptan 10 mg tablet 10 mg PO PRN PRN migraines 09/26/20 [History Last Taken Unknown] cefuroxime axetil 500 mg tablet 500 mg PO BID #14 tabs 10/10/22 [Rx Last Taken Unknown] ibuprofen 600 mg tablet 600 mg PO Q6H PRN PRN pain #20 TABLETS 10/10/22 [Rx Last Taken Unknown] ondansetron 4 mg disintegrating tablet 4 mg PO Q8H PRN PRN Nausea #10 tabs 10/10/22 [Rx Last Taken Unknown] oxycodone-acetaminophen 5 mg-325 mg tablet 1 tab PO Q6H PRN PRN Pain 3 days #12 TABLETS 10/10/22 [Rx Last Taken Unknown] tamsulosin 0.4 mg capsule 0.4 mg PO DAILY #7 CAPSULES 10/10/22 [Rx Last Taken Unknown] cephalexin 500 mg capsule 500 mg PO TID 5 days #15 caps 10/24/22 [Rx Last Taken Unknown] ketorolac 10 mg tablet 10 mg PO 4X/DAY PRN PRN pain 5 days #20 tabs 10/24/22 [Rx Last Taken Unknown] oxycodone-acetaminophen 5 mg-325 mg tablet (Percocet) 1 tab PO Q6H PRN pain 3 days #12 tabs 10/24/22 [Rx Last Taken Unknown] Allergy/AdvReac Type Severity Reaction Status Date / Time No Known Allergies Allergy Verified 10/10/22 06:58 Social History (Updated 10/24/22 @ 09:[address] Agustin Burdick MD) household members: spouse Smoking Status: Never smoker substance use type: does not use ROS ROS ED Constitutional Constitutional ED: Reports chills; Denies fever(s), subjective, sweats or weight loss Eyes Eyes: Denies blurry vision, change in vision or diplopia ENT ENT ED: Denies ear pain, rhinorrhea or sore throat Cardiovascular Cardiovascular: Denies chest pain, orthopnea, palpitations, paroxysmal nocturnal dyspnea or racing heartbeat Respiratory/Chest Respiratory/Chest: Denies cough, dyspnea, dyspnea on exertion, orthopnea or paroxysmal nocturnal dyspnea Gastrointestinal Gastrointestinal: Reports abdominal pain; Denies constipation, diarrhea, melena, nausea or vomiting Genitourinary Genitourinary ED: Reports other Details: Urgency ; Denies dysuria, hematuria or urinary frequency Musculoskeletal Musculoskeletal: Reports back pain; Denies arthralgias, myalgias or neck pain Integumentary Denies abscess, Abrasions or rash Neurologic Neurologic: Denies headache(s) or paresthesias Endocrine Endocrinology: Denies cold intolerance, heat intolerance, polydipsia, polyphagia or polyuria Hematologic/Lymphatic Hematologic/Lymphatic: Reports systems reviewed and no addt'l complaints, except as documented EXAM Physical Exam Const Vital Signs: 10/24/22 08:13 10/24/22 08:22 10/24/22 09:23 Temperature 96.9 F L Temperature Source Temporal Pulse Rate 98 88 Respiratory Rate 20 H Respiratory Effort Normal Respiratory Pattern Normal Blood Pressure 163/103 H 139/79 H Blood Pressure Mean 123 99 Pulse Ox 97 92 Oxygen Delivery Method Room Air Room Air Positive well nourished, well developed and obese Constitutional Narrative: Patient is in obvious discomfort pacing the room. General Appearance ED: well developed and pallor; Negative for cyanotic, diaphoretic or NAD Nutritional Appearance: obese HEENT Reports moist mucous membranes HEENT Narrative: Head is atraumatic normocephalic. Ears normal. Nares patent. Eyes PERRL and EOMs intact bilaterally General Eye ED: Negative for pale conjunctiva or scleral icterus Neck no lymphadenopathy, supple and no JVD Chest Wall inspection of chest normal and palpation of chest normal Resp normal respiratory effort and clear to auscultation bilaterally Cardio regular rate, regular rhythm, S1 normal heart sound, S2 normal heart sound and no murmurs GI normal to inspection, nondistended, normoactive bowel sounds, non-tender, non-distended and no masses; Negative for hepatosplenomegaly Palpation: soft Back/Spine no CVA tenderness Cervical Spine: Negative for cervical spine tenderness Thoracic Spine / Upper Back: Negative for thoracic spinal tenderness Lumbar Spine / Lower Back: Negative for lumbar spinal tenderness Extremity normal to inspection Neuro oriented x3, CN's II-XII intact bilaterally and no sensory deficits noted Sensorium / Orientation: Negative for alert Skin no rashes or lesions noted, no wounds and skin turgor normal General Skin Exam: pallor; Negative for elasticity normal or jaundice MDM MDM MDM Narrative Medical decision making narrative: CAT scan performed on October 10 was independently reviewed by me. There is no evidence of hydronephrosis, hydroureter ureter or stone. Labs from yesterday indicate an elevated white count of 14.2 thousand with shift. There was no bandemia. Creatinine yesterday was 1.62 which is abnormal. He has not had an elevated creatinine in the past. His blood sugar was elevated yesterday and his last few blood sugar checks have been elevated. Because patient has urinary symptoms UA was obtained to assess for infection. CBC was repeated. Since she did receive ketorolac yesterday repeat BMP was obtained to assess creatinine function. Patient and states he did not fill the prescription for ketorolac. He was instructed not to have felt. He was informed that his kidney function is abnormal and that his blood sugar is elevated. Because patient has elevated creatinine he was treated with 8 mg of morphine and 4 mg of Zofran for pain and nausea respectively. He had recurrence of his pain. He was given 1 mg of Dilaudid. He is still in significant discomfort. Since patient is still having pain elevated creatinine Dr. Mason who is on-call for urology and he has seen has been paged for admission for pain control and worsening renal function. Lab Data Attestation: I reviewed the patient's lab results. Lab results narrative: White count is elevated 14.8 thousand. There is a slight shift. There is a represent demargination due to pain. Basic metabolic panel is remarked for creatinine of 1.88 and glucose of 162. CO2 and anion gap are normal. Urine is remarkable elevated specific gravity 1.025. There is evidence of proteinuria, glucosuria, ketones and occult. Microscopic reveals 0-5 RBCs, 0-5 WBCs and 0-5 squamous epithelial cells. No bacteria was noted. Labs: Laboratory Results - last 24 hr 10/24/22 10/24/22 10/24/22 08:30 08:30 08:35 WBC 14.8 H RBC 5.56 Hgb 17.1 H Hct 49.1 MCV 88.3 MCH 30.8 MCHC 34.8 RDW Std Deviation 40.8 RDW Coeff of Kelly 12.4 Plt Count 235 MPV 9.4 Immature Gran % (Auto) 0.500 Neut % (Auto) 81.7 H Lymph % (Auto) 8.3 L [place] % (Auto) 8.9 Eos % (Auto) 0.3 Baso % (Auto) 0.3 Absolute Neuts (auto) 12.1 H Absolute Lymphs (auto) 1.22 Nucleated RBC % 0 Sodium 137 Potassium 3.3 L Chloride 101 Carbon Dioxide 28.0 Anion Gap 8 BUN 25 H Creatinine 1.88 H Estim Creat Clear Calc 47.46 Est GFR (MDRD) Af Amer 49 L Est GFR (MDRD) Non-Af 40 L BUN/Creatinine Ratio 13.3 Glucose 162 H Calcium 8.8 Urine Color Yellow Urine Clarity Clear Urine pH 5.0 Ur Specific [place] 1.025 Urine Protein 30 H Urine Glucose (UA) 250 H Urine Ketones 5 H Urine Occult Blood 10 H Urine Nitrite Negative Urine Bilirubin Negative Urine Urobilinogen Normal Ur Leukocyte Esterase 25 H Urine RBC 0-5 SEEN Urine WBC 0-5 SEEN Ur Squamous Epith Cells 0-5 SEEN Urine Bacteria 0 SEEN Urine Mucus 2+ Treatment and Re-Evaluation Narrative: Case was discussed with urology. Patient be admitted to urology for pain management Discharge Plan Triage Chief Complaint: Flank Pain ED Provider: Agustin Burdick Dx/Rx/DC Orders Clinical Impression: Renal colic, Hypertension, Acute kidney insufficiency, Acute hyperglycemia Prescriptions: No Action rizatriptan 10 MG tablet 10 mg PO PRN PRN (Reason: migraines) amitriptyline 50 MG tablet 50 mg PO QHS metoprolol tartrate 25 MG tablet 25 mg PO DAILY cefuroxime axetil 500 mg tablet 500 mg PO BID Qty: 14 0RF ibuprofen 600 mg tablet 600 mg PO Q6H PRN PRN (Reason: pain) Qty: 20 0RF oxycodone-acetaminophen [oxycodone-acetaminophen] 5-325 mg tablet 1 tab PO Q6H PRN PRN (Reason: Pain) 3 Days Qty: 12 0RF ondansetron [ondansetron] 4 mg tablet,disintegrating 4 mg PO Q8H PRN PRN (Reason: Nausea) Qty: 10 0RF tamsulosin [tamsulosin] 0.4 mg capsule 0.4 mg PO DAILY Qty: 7 0RF oxycodone-acetaminophen [Percocet] 5-325 mg tablet 1 tab PO Q6H PRN (Reason: pain) 3 Days Qty: 12 0RF ketorolac 10 mg tablet 10 mg PO 4X/DAY PRN PRN (Reason: pain) 5 Days Qty: 20 0RF cephalexin 500 mg capsule 500 mg PO TID 5 Days Qty: 15 0RF Primary Care Provider: Mely Flanagan Referrals: Mely Flanagan DO [Primary Care Provider] - Disposition Disposition: Acute Care Hospital [facility]
[2022-10-24] MEDS: 0.9% Saline Lock 10 ML Syringe IV (15:00)
[2022-10-24] MEDS: Morphine 2 MG/ML Syringe IV ×2 (16:07→19:45)
[2022-10-24] MEDS: hydroCHLOROthiazide 25 MG Tablet PO (17:30)
[2022-10-24] MEDS: Metoprolol(XL)Succ 100 MG Tablet PO (17:30)
[2022-10-24] MEDS: amLODIPine 5 MG Tablet PO (17:31)
[2022-10-24] MEDS: Cefazolin 1 GM/50 ML BAG IV ×2 (17:31→21:49)
[2022-10-24] MEDS: HYDROmorphone 0.5 MG/0.5 ML SYRINGE IV (21:44)
[2022-10-24] MEDS: Amitriptyline 25 MG Tablet 50 MG PO (21:49)
[2022-10-24] MEDS: 0.9% Normal Saline 1,000 ML 100 ML IV (21:51)
[2022-10-25] VITALS (12 sets, daily range): BP systolic 129–169; BP diastolic 88–109; PULSE 83–103; RESP 16–18; TEMP 36.4–37.2; O2SAT 93–100; BMI 49.4
[2022-10-25] MEDS: HYDROmorphone 0.5 MG/0.5 ML SYRINGE IV ×3 (01:55→05:56)
[2022-10-25 03:20] LABS: Absolute Lymphocyte Count 1.21 X10^3/uL (0.83-4.51); Absolute Neutrophil Count 11.5 X10^3/uL (2.0-7.7); Basophil# 0.04 X10^3/uL; Basophil% 0.3 % (0-1); Eosinophil# 0.09 X10^3/uL; Eosinophils% 0.6 % (0-5); Hematocrit 46.5 % (40-54); Hemoglobin 15.7 g/dL (13.0-16.5); Lymphocyte # 1.21 X10^3/ul (0.83-4.51); Lymphocyte % 8.6 % (19-41); Mean Corp Hgb Conc 33.8 g/dL (32-36); Mean Corpuscular Hgb 30.1 pg (27.0-32.0); Mean Corpuscular Volume 89.1 fL (80-94); Mean Platelet Vol. 9.3 fl (6.2-12.0); Monocyte% 8.5 % (0-10); NRBC Flagged by Analyzer 0 % (0-5); Neutrophil # 11.45 X10^3/uL (2.7-7.7); Neutrophil % 81.4 % (47-70); Platelet Count 217 K/mm3 (150-450); RBC Distribution Width CV 12.7 % (11.6-14.6); RBC Distribution Width SD 41.7 fl (35.1-43.9); Red Blood Count 5.22 M/mm3 (4.6-6.2); White Blood Count 14.1 K/mm3 (4.4-11.0)
[2022-10-25 03:40] LABS: Anion Gap 7 (5-15); BUN 24 mg/dL (7-18); BUN/Creat Ratio 14.1 RATIO (10-20); Calcium,Total 8.2 mg/dL (8.5-10.1); Chloride 103 mmol/L (98-107); EST Glomerular Filtration Rate 45 mL/min (>60); Est Glom Filt Rate - Afr Amer 55 mL/min (>60); Estimated Creatinine Clearance 52.48 ml/min; Glucose 128 mg/dL (74-106); Potassium 3.2 mmol/L (3.5-5.1); Sodium Level 139 mmol/L (136-145)
--- NOTE | 2022-10-25 05:05 | RAD_ITS ---
EXAM: XR ABDOMEN, 1 VIEW CLINICAL INDICATION: stone placement TECHNIQUE: 2 frontal supine view of the abdomen/pelvis. This report was created using [employer] report generation technology. COMPARISON: CT of 10/10/2022. FINDINGS: LOWER THORAX: No acute pathology. GASTROINTESTINAL TRACT: Unremarkable. Non-obstructive. No bowel or stomach distention. ORGANS: Unremarkable as visualized. No organomegaly. The 3 mm left ureteral stone seen on the prior CT is not well visualized on the current abdominal radiographs. BONES/JOINTS: No acute pathology. Lower thoracic degenerative spurring. SOFT TISSUES: No acute pathology. RAD/Abdomen Single View (Portable) IMPRESSION: Non-obstructive bowel gas pattern. No renal or ureteral calculi are identified on the submitted abdominal radiographs. Electronically Signed: Maxwell Hernandez MD at 7:09 EST ,
[2022-10-25] MEDS: 0.9% Normal Saline 1,000 ML 100 ML IV (05:56)
[2022-10-25] MEDS: Cefazolin 1 GM/50 ML BAG IV (05:56)
--- NOTE | 2022-10-25 07:55 | HP.PCM_ITS ---
HPI - General General Date of Admission: 10/24/22 Chief Complaint: Left kidney stone HPI Narrative JEFFERY KEN, is a 51 M who presents to the emergency room with left severe flank pain repeat CT scan was done that demonstrated a stone again 3 mm in size in the mid ureter he has severe renal colic has not been able to pass a stone he was admitted under observation for pain control this morning still has not passed the stone KUB the stone appears to be visible in the mid ureter on my review. We will plan for cystoscopy and left stent placement today under MAC local and under anesthesia after this and should be able to go home [facility] Medical History Hypertension Kidney stones Migraine Sleep apnea Home Medications amitriptyline 50 mg tablet 50 mg PO QHS 09/26/20 [History Last Taken 10/22/22] rizatriptan 10 mg tablet 10 mg PO PRN PRN migraines 09/26/20 [History Last Taken Unknown] amlodipine 5 mg tablet 5 mg PO DAILY . 10/24/22 [History Last Taken 10/23/22] hydrochlorothiazide 25 mg tablet 25 mg PO DAILY . 10/24/22 [History Last Taken 10/23/22] metoprolol succinate 100 mg tablet,extended release 24 hr 100 mg PO DAILY HTN 10/24/22 [History Last Taken 10/23/22] Allergy/AdvReac Type Severity Reaction Status Date / Time No Known Allergies Allergy Verified 10/10/22 06:58 Social History household members: spouse Smoking Status: Never smoker substance use type: does not use Vital Signs Vital Signs Vital Signs: 10/24/22 08:13 10/24/22 08:22 10/24/22 09:23 Temperature 96.9 F L Temperature Source Temporal Pulse Rate 98 88 Respiratory Rate 20 H Respiratory Effort Normal Respiratory Depth Respiratory Pattern Normal Blood Pressure 163/103 H 139/79 H Blood Pressure Mean 123 99 Blood Pressure Source Blood Pressure Position Blood Pressure Location Pulse Ox 97 92 Oxygen Delivery Method Room Air Room Air 10/24/22 10:30 10/24/22 10:30 10/24/22 13:22 Temperature 97 F L Temperature Source Temporal Pulse Rate 87 87 Respiratory Rate 18 Respiratory Effort Respiratory Depth Respiratory Pattern Blood Pressure 141/88 H 141/88 H Blood Pressure Mean 105 105 Blood Pressure Source Blood Pressure Position Blood Pressure Location Pulse Ox 94 92 94 Oxygen Delivery Method Room Air Room Air 10/24/22 14:42 10/24/22 15:03 10/24/22 15:06 Temperature 98.2 F 98.2 F Temperature Source Oral Oral Pulse Rate 101 H 101 H Respiratory Rate 18 18 Respiratory Effort Normal Non-Labored Respiratory Depth Normal Respiratory Pattern Normal Blood Pressure 153/91 H 153/91 H Blood Pressure Mean 111 111 Blood Pressure Source Monitor Blood Pressure Position Semi-Fowlers Blood Pressure Location Left Arm Pulse Ox 94 94 Oxygen Delivery Method Room Air Room Air Room Air 10/24/22 17:30 10/24/22 19:48 10/25/22 01:56 Temperature 98.1 F 97.9 F Temperature Source Oral Oral Pulse Rate 107 H 107 H 97 Respiratory Rate 20 H 18 Respiratory Effort Respiratory Depth Respiratory Pattern Blood Pressure 169/85 H 169/99 H Blood Pressure Mean 113 122 Blood Pressure Source Blood Pressure Position Blood Pressure Location Pulse Ox 96 100 Oxygen Delivery Method Room Air Room Air 10/25/22 05:59 Temperature 98.1 F Temperature Source Oral Pulse Rate 90 Respiratory Rate 18 Respiratory Effort Respiratory Depth Respiratory Pattern Blood Pressure 149/97 H Blood Pressure Mean 114 Blood Pressure Source Monitor Blood Pressure Position Sitting Blood Pressure Location Left Forearm Pulse Ox 96 Oxygen Delivery Method Room Air Weight Weight: 156.036 kg Body Mass Index (BMI) 49.4 Results Medical Records Data Attestation: I reviewed the patient's medical records Lab / Micro Data Attestation: I reviewed the patient's lab results. Result Diagrams: 10/25/22 03:11 10/25/22 03:11 Labs: Laboratory Results - last 24 hr 10/24/22 08:30: WBC 14.8 H, RBC 5.56, Hgb 17.1 H, Hct 49.1, MCV 88.3, MCH 30.8, MCHC 34.8, RDW Std Deviation 40.8, RDW Coeff of Kelly 12.4, Plt Count 235, MPV 9.4, Immature Gran % (Auto) 0.500, Neut % (Auto) 81.7 H, Lymph % (Auto) 8.3 L, Morrison % (Auto) 8.9, Eos % (Auto) 0.3, Baso % (Auto) 0.3, Absolute Neuts (auto) 12.1 H, Absolute Lymphs (auto) 1.22, Nucleated RBC % 0 10/24/22 08:30: Sodium 137, Potassium 3.3 L, Chloride 101, Carbon Dioxide 28.0, Anion Gap 8, BUN 25 H, Creatinine 1.88 H, Estim Creat Clear Calc 47.46, Est GFR (MDRD) Af Amer 49 L, Est GFR (MDRD) Non-Af 40 L, BUN/Creatinine Ratio 13.3, Glucose 162 H, Calcium 8.8 10/24/22 08:35: Urine Color Yellow, Urine Clarity Clear, Urine pH 5.0, Ur Specific Thomas 1.025, Urine Protein 30 H, Urine Glucose (UA) 250 H, Urine Ketones 5 H, Urine Occult Blood 10 H, Urine Nitrite Negative, Urine Bilirubin Negative, Urine Urobilinogen Normal, Ur Leukocyte Esterase 25 H, Urine RBC 0-5 SEEN, Urine WBC 0-5 SEEN, Ur Squamous Epith Cells 0-5 SEEN, Urine Bacteria 0 SEEN, Urine Mucus 2+ 10/25/22 03:11: WBC 14.1 H, RBC 5.22, Hgb 15.7, Hct 46.5, MCV 89.1, MCH 30.1, MCHC 33.8, RDW Std Deviation 41.7, RDW Coeff of Kelly 12.7, Plt Count 217, MPV 9.3, Immature Gran % (Auto) 0.600, Neut % (Auto) 81.4 H, Lymph % (Auto) 8.6 L, Morrison % (Auto) 8.5, Eos % (Auto) 0.6, Baso % (Auto) 0.3, Absolute Neuts (auto) 11.5 H, Absolute Lymphs (auto) 1.21, Nucleated RBC % 0 10/25/22 03:11: Sodium 139, Potassium 3.2 L, Chloride 103, Carbon Dioxide 29.0, Anion Gap 7, BUN 24 H, Creatinine 1.70 H, Estim Creat Clear Calc 52.48, Est GFR (MDRD) Af Amer 55 L, Est GFR (MDRD) Non-Af 45 L, BUN/Creatinine Ratio 14.1, Glucose 128 H, Calcium 8.2 L Radiology Impression KUB X-Ray 10/25/22 05:05 IMPRESSION: Non-obstructive bowel gas pattern. No renal or ureteral calculi are identified on the submitted abdominal radiographs. Electronically Signed: Maxwell Hernandez MD at 7:09 EST , Assessment & Plan Assessment/Plan (1) Kidney stone on left side: PLAN: Plan for cystoscopy and left stent placement for severe right renal colic failure as an outpatient management and pain control was difficult in the emergency room so the emergency room doctor asked me to admit the patient for further care
--- NOTE | 2022-10-25 08:00 | DCINST_ITS ---
Discharge Instructions Diet Discharge Diet: No restrictions Follow Up Care Please Follow Up With: Jorge Mason MD When: Call my office to be set up for shockwave therapy to treat stone [id number] Test Results: Test results from this visit will be discussed in further detail at your follow- up appointment, if applicable. Discharge Plan Admission Admit Date/Time: 10/24/22 15:29 Primary Reason for Your Visit: kidney stone Attending Provider: Jorge Mason Primary Care Provider: Mely Flanagan Discharge Orders/Prescriptions Prescriptions: New ciprofloxacin HCl [Cipro] 500 mg tablet 500 mg PO BID Qty: 6 0RF oxycodone-acetaminophen [Endocet] 5-325 mg tablet 1 tab PO Q4H PRN (Reason: pain) 7 Days Qty: 14 0RF Continued rizatriptan 10 MG tablet 10 mg PO PRN PRN (Reason: migraines) amitriptyline 50 MG tablet 50 mg PO QHS metoprolol succinate 100 mg Tablet Extended Release 24 Hr 100 mg PO DAILY amlodipine 5 mg Tablet 5 mg PO DAILY hydrochlorothiazide 25 mg Tablet 25 mg PO DAILY Referrals / Follow Up: Mely Flanagan DO [Primary Care Provider] - Disposition Discharge Orders: Discharge Patient (Routine); Ordered 10/25/22 Ordered By: Dr. Jorge Mason
[2022-10-25] MEDS: Lidocaine Jelly 2% 20 ML Syringe (URO-JET) 1 APPLIC (08:21)
--- NOTE | 2022-10-25 08:27 | PCM.OPRPT ---
Report of Operation Date of Procedure: 10/25/22 Pre-Operative Diagnosis: 3 mm obstructing left ureteral calculi severe left flank pain Post-Operative Diagnosis: Same Surgery/Procedure Performed:: Cystoscopy, left retrograde pyelogram, interpretation of fluoroscopic images, left stent placement Description of Surgical Findings:: Indication this is a 51-year-old male who I saw as an outpatient for 3 mm stone at that point he had no pain whatsoever we both thought that he had passed a stone and so we did not make any follow-up plans at that point he then just presented back to the emergency room with severe renal colic CT scan repeated and demonstrates a 3 mm stone again in the mid ureter probably stuck he was having severe renal colic pain is not being controlled by IV medications and so the emergency room called me and asked me to admit the patient for further control of his pain. Also his creatinine was elevated. Patient was taken back to the operating room, he underwent anesthesia by Dr. Olivier and MAC local anesthesia was provided patient was placed in dorsolithotomy position with the legs in stirrups the penis and testicles were prepped and draped in usual sterile fashion lidocaine jelly was placed into the urethra to help with control of pain I then went into the urethra with a 21 Liberian rigid cystourethroscope the entire length of the urethra was clear of any scar tissue or abnormalities the sphincter was intact very large patient BMI was 51 very difficult to get into the bladder with the cystoscope especially under MAC local with a lot of heavy breathing had to push really hard to get through the prostate. Once I got into the prostate through the prostate then I identified the trigone and then identified the left ureteral orifice was able to get a wire with a 5 Liberian open-ended catheter and cannulated the left ureteral orifice advanced a wire up. Under fluoroscopy is Difficult to see where the stone was but on KUB before the procedure I thought I could see the stone in the mid ureter I advanced a wire up I then advanced the 5 Liberian open-ended catheter performed a retrograde pyelogram can see contrast going up to the kidney there was a dilated ureter and then after this advanced a wire up into the kidney once the wire coiled in good position then advanced a stent over the wire once the stent was in good position I pulled the wire and the stent coiled in the kidney and bladder in good position no string was left on the stent to avoid any accidental extractions. Patient bladder was drained and he was taken back to the PACU in good condition to set him up for shockwave therapy next available date. Surgeon: Jorge Mason Type of Anesthesia: MAC and Topical Anesth Drains: stent Admit VTE Documentation VTE Present on Admission: No VTE Mechan Device Prophylaxis: SCD's VTE Pharm Prophylaxis ordered?: No
[2022-10-25] MEDS: hydroCHLOROthiazide 25 MG Tablet PO (09:51)
[2022-10-25] MEDS: Metoprolol(XL)Succ 100 MG Tablet PO (09:51)
[2022-10-25] MEDS: amLODIPine 5 MG Tablet PO (09:51)
--- NOTE | 2022-10-25 10:05 | CASEMGMT ---
[place] Assessment: Face to Face with pt for initial transition planning/care coordination assessment. RN SERGIO introduced self and role at [facility], pt voices understanding and consents to assessment. Pt is A/O x4 and answers all questions appropriately at this time. Pt lying in bed with at bedside in no distress. Care providers, pharmacy, and demographics verified/updated. Admitting Dx: ureterolithiasis PCP:Panchito Specialists:sheridan Mason [facility]: [facility] Insurance: MMO Prescription Benefit: yes LNOK: Bette Diallo, Living Arrangements: Pt lives with in a single story house with 2 steps to enter with a grab bar. Pt reports he is I in ADL's and denies concerns at home. Transportation: Pt drives self and denies concerns with transportation. DME/HHC/SNF: Pt denies having any DME, previous HHC or SNF stays. Pt states no concerns with going home at time of dc. Pt states no further concerns/needs. CM to follow. Advised pt to ask CM if any further question/concerns/needs arise, voices understanding. Pt Goal: Home Plan: Home
== END 2022-10-25 11:02 | disposition home or self-care (01) | DRG 660 ==
LOC: ED 10:24 → MS3 15:35
PROVIDERS: Admitting Provider Urology; Emergency Provider Emergency Medicine; PCP Internal Medicine; Visit Provider Urology
PROC: 0T778DZ Dilation of Left Ureter with Intraluminal Device, Via Natural or Artificial Opening Endoscopic (ICD-10-PCS; principal; 2022-10-25 07:50)
DX: N20.1 Calculus of ureter (principal); Z68.43 Body mass index [BMI] 50.0-59.9, adult; E66.01 Morbid (severe) obesity due to excess calories; I10 Essential (primary) hypertension; Z79.899 Other long term (current) drug therapy
CPT/HCPCS: 36415; 74018; 76000; 80048; 81001; 85025; 93005; 99285; J7030; A4216; C1769; C2617; J2405

== ENCOUNTER → 2022-11-04 | Outpatient (CLI) | payer OTHER, SELFPAY ==
--- NOTE | 2022-11-04 09:33 | EKG12_ITS ---
Test Reason : PRE OP Blood Pressure : / mmHG Vent. Rate : 094 BPM Atrial Rate : 094 BPM P-R Int : 180 ms QRS Dur : 094 ms QT Int : 360 ms P-R-T Axes : 032 -02 039 degrees QTc Int : 450 ms Normal sinus rhythm Left ventricular hypertrophy Abnormal ECG Confirmed by SAMMY AGEE, LEVI ([id number]), content editor DOREEN PAUL ([id number]) on 11/05/2022 10:20:40 AM Referred By: VALENTÍN Confirmed By:LEVI CHRISTIANSON MD
== END | disposition home or self-care (01) ==
LOC: PSN 09:31
PROVIDERS: PCP Internal Medicine; Visit Provider Urology
DX: Z01.810 Encounter for preprocedural cardiovascular examination (principal)
CPT/HCPCS: 93005

== ENCOUNTER → 2022-12-13 | Outpatient (CLI) | payer OTHER, SELFPAY ==
[2022-12-13 08:04] LABS: Bacteria 0 SEEN /hpf (None Seen); Mucous, Urine 0 SEEN /hpf (<or=2+); Red Blood Cells-Urine 0 SEEN /hpf (0-5); Squamous Epithelial Cells - UA 0 SEEN /hpf (0-5); White Blood Cells 0 SEEN /hpf (0-5)
[2022-12-13 08:35] LABS: Absolute Neutrophil Count 3.7 X10^3/uL (2.0-7.7); Hemoglobin 16.7 g/dL (13.0-16.5); Mean Corp Hgb Conc 34.8 g/dL (32-36); Mean Corpuscular Hgb 30.8 pg (27.0-32.0); Mean Corpuscular Volume 88.6 fL (80-94); Platelet Count 245 K/mm3 (150-450); Red Blood Count 5.42 M/mm3 (4.6-6.2); White Blood Count 7.7 K/mm3 (4.4-11.0)
[2022-12-13 08:46] LABS: ALB/GLOB Ratio 0.9 RATIO (0.9-2.4); AST(SGOT) 23 U/L (15-37); Alanine Aminotransfer ALT/SGPT 42 U/L (16-61); Albumin, Serum 3.5 g/dL (3.2-5.0); Alkaline Phosphatase 109 U/L (45-117); Anion Gap 6 (5-15); BUN 19 mg/dL (7-18); BUN/Creat Ratio 18.6 RATIO (10-20); Calcium,Total 8.4 mg/dL (8.5-10.1); Chloride 101 mmol/L (98-107); Cholesterol 186 mg/dL (200); Creatinine, Serum 1.02 mg/dL (0.70-1.30); EST Glomerular Filtration Rate 81 mL/min (>60); Est Glom Filt Rate - Afr Amer 98 mL/min (>60); Globulin 3.9 g/dL (2.2-4.2); Glucose 115 mg/dL (74-106); High Density Lipoprotein 39 mg/dL; Potassium 3.3 mmol/L (3.5-5.1); Protein, Total 7.4 g/dL (6.4-8.2); Sodium Level 136 mmol/L (136-145); Triglycerides 121 mg/dL; Very Low Density Lipoprotein 24 mg/dL (5-40)
[2022-12-13 08:53] LABS: Microalbumin,Random Urine 15.3 mg/L (NO RANGE EST.); Microalbumin:Creatinine Ratio 6.8 mg/g CRE (<30 mg/g CRE)
[2022-12-13 08:59] LABS: Color, Urine Yellow (Yellow); Glucose, Dipstick Normal (Normal); Ketone-Dipstick Negative (Negative); Leukocyte Esterase-Dipstick 25 /ul (Negative); Nitrite-Dipstick Negative (Negative); Occult Blood-Urine 10 /ul (Negative); Protein-Dipstick 15 mg/dl (Negative); Urine Bilirubin Dipstick Negative (Negative); Urine Clarity Clear (Clear); Urine Urobilinogen Normal (Normal)
[2022-12-13 09:09] LABS: Absolute Lymphocyte Count 2.63 X10^3/uL (0.83-4.51); Basophil# 0.08 X10^3/uL; Eosinophil# 0.32 X10^3/uL; Eosinophils% 4.2 % (0-5); Lymphocyte # 2.63 X10^3/ul (0.83-4.51); Lymphocyte % 34.4 % (19-41); Mean Platelet Vol. 9.9 fl (6.2-12.0); Monocyte# 0.85 X10^3/uL; Monocyte% 11.1 % (0-10); NRBC Flagged by Analyzer 0 % (0-5); Neutrophil # 3.72 X10^3/uL (2.7-7.7); Neutrophil % 48.8 % (47-70); RBC Distribution Width CV 12.9 % (11.6-14.6); RBC Distribution Width SD 41.6 fl (35.1-43.9)
== END | disposition home or self-care (01) ==
LOC: LAB 08:00
PROVIDERS: PCP Internal Medicine; Visit Provider Internal Medicine
DX: I10 Essential (primary) hypertension (principal); E78.1 Pure hyperglyceridemia
CPT/HCPCS: 36415; 80053; 80061; 81001; 82043; 82570; 85025

== ENCOUNTER → 2022-12-27 | Outpatient (CLI) | payer OTHER, SELFPAY ==
[2022-12-27 08:49] LABS: Magnesium 2.2 mg/dL (1.6-2.6); Potassium 3.8 mmol/L (3.5-5.1)
[2022-12-27 09:01] LABS: Hemoglobin A1c 5.6 % (3.8-5.6)
== END | disposition home or self-care (01) ==
LOC: LAB 07:54
PROVIDERS: PCP Internal Medicine; Referring Provider Internal Medicine; Visit Provider Internal Medicine
DX: R73.9 Hyperglycemia, unspecified (principal); E87.6 Hypokalemia
CPT/HCPCS: 36415; 83036; 83735; 84132

== ENCOUNTER → 2023-11-28 | Outpatient (CLI) | payer OTHER, SELFPAY ==
[2023-11-28 09:29] LABS: Magnesium 2.3 mg/dL (1.6-2.6); Potassium 3.9 mmol/L (3.5-5.1)
[2023-11-28 09:35] LABS: Hemoglobin A1c 5.9 % (3.8-5.6)
[2023-11-30 12:08] LABS: PSA, Free 0.22 ng/mL; PSA, Free % 43.6 % (.); PSA, Total Ultrasensitive 0.505 ng/mL (0.000-4.000)
== END | disposition home or self-care (01) ==
LOC: LAB 08:24
PROVIDERS: PCP Internal Medicine; Referring Provider Internal Medicine; Visit Provider Internal Medicine
DX: E87.6 Hypokalemia (principal); R73.9 Hyperglycemia, unspecified; Z12.5 Encounter for screening for malignant neoplasm of prostate
CPT/HCPCS: 36415; 83036; 83735; 84132; 84153; 84154

== ENCOUNTER → 2024-04-06 | Outpatient (CLI) | payer OTHER, SELFPAY ==
[2024-04-06 06:55] LABS: Bacteria 0 SEEN /hpf (None Seen); Mucous, Urine 0 SEEN /hpf (<or=2+); Red Blood Cells-Urine 0 SEEN /hpf (0-5); Squamous Epithelial Cells - UA 0 SEEN /hpf (0-5)
[2024-04-06 07:26] LABS: Absolute Lymphocyte Count 2.08 X10^3/uL (0.83-4.51); Absolute Neutrophil Count 4.4 X10^3/uL (2.0-7.7); Basophil# 0.06 X10^3/uL; Basophil% 0.8 % (0-1); Eosinophil# 0.22 X10^3/uL; Eosinophils% 2.9 % (0-5); Hematocrit 48.9 % (40-54); Hemoglobin 16.6 g/dL (13.0-16.5); Lymphocyte # 2.08 X10^3/ul (0.83-4.51); Lymphocyte % 27.7 % (19-41); Mean Corp Hgb Conc 33.9 g/dL (32-36); Mean Corpuscular Volume 88.4 fL (80-94); Mean Platelet Vol. 9.7 fl (6.2-12.0); Monocyte# 0.78 X10^3/uL; Monocyte% 10.4 % (0-10); NRBC Flagged by Analyzer 0 % (0-5); Neutrophil # 4.36 X10^3/uL (2.7-7.7); Neutrophil % 57.9 % (47-70); Platelet Count 228 K/mm3 (150-450); RBC Distribution Width CV 12.1 % (11.6-14.6); RBC Distribution Width SD 39.4 fl (35.1-43.9); Red Blood Count 5.53 M/mm3 (4.6-6.2); White Blood Count 7.5 K/mm3 (4.4-11.0)
[2024-04-06 07:36] LABS: Color, Urine Yellow (Yellow); Glucose, Dipstick Normal (Normal); Ketone-Dipstick Negative (Negative); Leukocyte Esterase-Dipstick 25 /ul (Negative); Nitrite-Dipstick Negative (Negative); Occult Blood-Urine Negative /ul (Negative); Protein-Dipstick Negative (Negative); Specific Gravity, Urine 1.015 (1.002-1.030); Urine Bilirubin Dipstick Negative (Negative); Urine Clarity Clear (Clear); Urine Urobilinogen Normal (Normal)
[2024-04-06 07:46] LABS: Hemoglobin A1c 5.7 % (3.8-5.6)
[2024-04-06 07:53] LABS: White Blood Cells 0-5 SEEN /hpf (0-5)
[2024-04-06 08:04] LABS: ALB/GLOB Ratio 0.9 RATIO (0.9-2.4); AST(SGOT) 23 U/L (15-37); Alanine Aminotransfer ALT/SGPT 27 U/L (16-61); Albumin, Serum 3.5 g/dL (3.2-5.0); Alkaline Phosphatase 100 U/L (45-117); Anion Gap 4 (5-15); BUN 16 mg/dL (7-18); BUN/Creat Ratio 16.1 RATIO (10-20); Calcium,Total 8.5 mg/dL (8.5-10.1); Chloride 102 mmol/L (98-107); Cholesterol 170 mg/dL (200); Creatinine, Serum 0.99 mg/dL (0.70-1.30); EST Glomerular Filtration Rate 83 mL/min (>60); Est Glom Filt Rate - Afr Amer 101 mL/min (>60); Glucose 125 mg/dL (74-106); High Density Lipoprotein 42 mg/dL; Potassium 3.5 mmol/L (3.5-5.1); Protein, Total 7.5 g/dL (6.4-8.2); Sodium Level 136 mmol/L (136-145); Thyroid Stim Hormone (TSH) 1.37 uIU/mL (0.358-3.74); Triglycerides 118 mg/dL; Very Low Density Lipoprotein 24 mg/dL (5-40)
[2024-04-06 08:09] LABS: Microalbumin,Random Urine 12.1 mg/L (NO RANGE EST.); Microalbumin:Creatinine Ratio 15.5 mg/g CRE (<30 mg/g CRE)
== END | disposition home or self-care (01) ==
LOC: LAB 06:51
PROVIDERS: PCP Internal Medicine; Referring Provider Internal Medicine; Visit Provider Internal Medicine
DX: I10 Essential (primary) hypertension (principal); R73.09 Other abnormal glucose
CPT/HCPCS: 36415; 80053; 80061; 81001; 82043; 82570; 83036; 84443; 85025